=== PATIENT | female | born 1980 | race Caucasian/White ===

== ENCOUNTER → 2020-11-29 09:48 | Outpatient (BNVA) | payer OTHER, SELFPAY | PROVIDERS: PCP Physician Assistant Medical; Visit Provider Internal Medicine Cardiovascular Disease | DX: R06.02 Shortness of breath (principal); I49.3 Ventricular premature depolarization; I10 Essential (primary) hypertension | CPT/HCPCS: 93005 ==

== ENCOUNTER → 2021-01-14 09:32 | Outpatient (REF) | payer OTHER, SELFPAY ==
--- NOTE | 2021-01-14 09:39 | CA_ITS ---
Transthoracic Echocardiogram Patient (Last, First, Middle): Lindy Simental, Gender: Female Date of : 1980 Age: 40 Procedure Date: 01/14/2021 Procedure Type: Transthoracic Echocardiogram Location: OP Height: 165.1 cm Weight: 142.88 kg BSA: 2.40 m2 Heart Rate: bpm BP: 120 / 70 mmHg Photo Manager: CHRISTAL Referring MD: Bryant Hawkins MD Steam Shovel Runner: Bryant Hawkins MD Symptoms: R06.02 - Shortness of breath Study Quality: Fair ECG Rhythm: Sinus Conclusions: - Essentially normal study Findings Left Ventricle Normal left ventricular size, thickness, and systolic function. The visually estimated ejection fraction is between 60-65%. Diastolic function is normal for age. Right Ventricle Normal right ventricular cavity size and systolic function. Atria Both atria are normal in size. There is no evidence of interatrial shunt. Aortic Valve Normal aortic valve structure and function. There is no aortic valve stenosis. There is no aortic valve regurgitation. Mitral Valve Normal mitral valve structure and function. There is trace mitral valve regurgitation. There is no mitral valve stenosis. Pulmonic Valve The pulmonic valve is likely normal. Tricuspid Valve Normal tricuspid valve structure. There is trace tricuspid valve regurgitation. The right ventricular systolic pressure is normal. The right ventricular systolic pressure is 28 mmHg. Normal right atrial pressure. There is no evidence of pulmonary hypertension. Great Vessels All visible segments of the aorta are normal in size. The pulmonary artery was not well visualized. Venous The inferior vena cava is normal in size and collapses greater than 50% with inspiration. Pericardium/Pleural There is no evidence of pericardial effusion. Prior Study Comparison No prior study available for comparison. Measurements 2D Linear Measurements IVSd: 1.00 0.6-0.9/0.6-1.0 cm LVIDd: 4.48 3.9-5.3/4.2-5.9 cm LVIDd Index: 1.87 2.4-3.2/2.2-3.1 cm/m2 LVIDs: 2.82 2.0-3.6 cm LVPWd: 0.97 0.7-1.1 cm Ao Root: 2.50 2.1-3.5 cm LA Diam: 3.80 2.7-3.8/3.0-4.0 cm LAIDs Index: 1.58 1.5-2.3 cm/m2 LV Mass: 184.91 67-162/88-224 g LV Mass Index: 77.05 43-95/49-115 g/m2 LVOT Diam: 2.00 3.0+(-)1.3 cm 2D Systolic Function EF 4C: 78.30 >55% EF 2C: 46.40 >55% EF BiP: 66.90 >55% Mitral Valve MV Pk E: 0.94 MV PK A: 0.58 MV Decel Time: 140.00 E/A: 1.60 E'Lateral: 17.00 E'Medial: 8.81 E/E' Med: 10.60 E/E' Lat: 5.50 PHT: 41.00 MVA PHT: 5.37 Decel [place]: 6.69 Aortic Valve AoV Pk Sj: 1.43 AoV Pk Grad: 8.00 LVOT LVOT Pk Sj: 1.25 LVOT Mn Sj: 0.80 LVOT VTI: 0.27 LVOT Pk Grad: 6.00 LVOT Mn Grad: 3.00 LVOT Diam: 2.00 LVOT Area: 3.14 Diastolic Function MV Pk E: 0.94 MV Pk A: 0.58 E/A: 1.60 E'Medial: 8.81 E/E' Med: 10.60 E' Laterial: 17.00 E/E' Lat: 5.50 Tricuspid Valve TR Pk Sj: 2.50 TR Pk Grad: 25.00 RVSP: 28.00 Great Vessels Aorta Ao Root-2D: 2.50 2.0-3.7 cm Ao Asc: 2.80 2.1-3.4 cm Updated in Other Vendor System with Status of Final Bryant Hawkins MD electronically signed on 01/14/2021 1:25:02 PM with status of Final
== END ==
LOC: HO.CARD 09:32
PROVIDERS: Visit Provider Internal Medicine Cardiovascular Disease
DX: I49.3 Ventricular premature depolarization (principal); R06.02 Shortness of breath
CPT/HCPCS: 93306; Q9957

== ENCOUNTER → 2021-11-05 13:00 | Outpatient (BNVA) | payer OTHER, SELFPAY | PROVIDERS: PCP Physician Assistant Medical; Visit Provider Internal Medicine Cardiovascular Disease | DX: R00.2 Palpitations (principal); I10 Essential (primary) hypertension | CPT/HCPCS: 93005 ==

== ENCOUNTER → 2021-11-21 11:13 | Outpatient (REF) | payer OTHER, SELFPAY ==
--- NOTE | 2021-11-21 11:22 | HM_ITS ---
Conclusion: 1. Patient was monitored for total period of 3 days and 14 hours 2. Baseline was normal sinus rhythm with average heart rate of 81 beats per minute 3. Total of 25 PACs noted accounting for less than 0.01%, accounting for very rare PACs 4. No significant pauses or bradycardia noted 5. No patient reported symptoms MTDD
== END ==
LOC: HO.CARD 11:13
PROVIDERS: PCP Family Medicine; Visit Provider Internal Medicine Cardiovascular Disease
DX: R00.2 Palpitations (principal); I49.3 Ventricular premature depolarization
CPT/HCPCS: 93242

== ENCOUNTER → 2022-11-06 11:08 | Outpatient (BNVA) | payer OTHER, SELFPAY | PROVIDERS: PCP Family Medicine; Referring Provider Family Medicine; Visit Provider Internal Medicine Cardiovascular Disease | DX: I49.3 Ventricular premature depolarization (principal); I10 Essential (primary) hypertension | CPT/HCPCS: 93005 ==

== ENCOUNTER → 2023-02-18 10:36 | Outpatient (BNVA) | payer OTHER, SELFPAY | PROVIDERS: PCP Family Medicine; Visit Provider Dietitian, Registered | DX: E66.9 Obesity, unspecified (principal); Z68.43 Body mass index [BMI] 50.0-59.9, adult | CPT/HCPCS: 97802 ==

== ENCOUNTER 2023-11-16 10:40 | Outpatient (AMB) | payer OTHER, SELFPAY ==
[2023-11-16 10:46] VITALS: BP 118/72; PULSE 81; BMI 53.0
--- NOTE | 2023-11-16 10:46 | MHC.OFFVIS ---
Intake Vital Signs 11/16/23 10:46 Height 5 ft 6 in Weight 328 lb 7.82 oz BMI 53.0 BP 118/72 Blood Pressure Location Lt brachial Position Sitting Pulse 81 Intake Visit Reasons: 1 YEAR FUP Intake Note: 1 year follow-up with ekg c/o flutters at times Shop Mechanic Helper Required: No Allergies acetaminophen [Percocet] Allergy (Unknown, Verified 01/23/20 00:00) omeprazole Allergy (Unknown, Verified 01/23/20 00:00) oxycodone [Percocet] Allergy (Unknown, Verified 01/23/20 00:00) penicillin V Allergy (Unknown, Verified 01/23/20 00:00) Sulfa (Sulfonamide Antibiotics) Allergy (Unknown, Verified 01/23/20 00:00) Cecon Allergy (Unknown, Uncoded 01/23/20 00:00) Doxycycline (Rosacea) Allergy (Unknown, Uncoded 01/23/20 00:00) Vicodin Allergy (Unknown, Uncoded 01/23/20 00:00) Medication List - Last Reconciled 11/16/23 by Bryant Hawkins MD famotidine 40 mg PO BID levalbuterol tartrate 45 mcg/actuation inhalation levothyroxine 150 mcg PO DAILY norethindrone (contraceptive) (Incassia) 0.35 mg PO DAILY propranolol ER 60 mg PO DAILY HPI HPI Comments History of Present Illness Details Lindy comes for follow-up. She has been doing very well from cardiac perspective. She occasionally still has fluttering in her chest but not significant. Blood pressure is generally well controlled. She has not been able to exercise much or lose weight. However she denies any other cardiac symptoms of exertional chest pain or shortness of breath. Denies any orthopnea, PND, leg edema. No prolonged irregular heartbeat or palpitations. No lightheadedness, syncope. FORMERLY [facility] Medical History SOB (shortness of breath) on exertion Obstructive sleep apnea Obesity HTN (hypertension) PVCs (premature ventricular contractions) Surgical History Hx of lithotripsy Hx of thyroidectomy Family History Father No problems noted. Mother Afib Review of Systems Const Denies chills, Denies fatigue, Denies fever(s), Denies frequent falls, Denies weakness, Denies weight gain and Denies weight loss ENT Denies dizziness Card Denies chest pain, Denies leg edema, Denies lightheadedness, Denies palpitations, Denies dyspnea, Denies dyspnea on exertion, Denies orthopnea and Denies other (loss of consciousness) Resp Denies cough, Denies dyspnea and Denies dyspnea on exertion GI Denies hematochezia and Denies change in stool character Musc Denies abnormal gait, Denies muscle weakness, Denies numbness, Denies radiating pain into limb and Denies tingling Neuro Denies abnormal gait, Denies dizziness, Denies frequent falls, Denies numbness, Denies tingling and Denies weakness Endo Denies fatigue and Denies palpitations Physical Exam Vital Signs: Last Vital Signs Pulse 81 11/16/23 10:46 BP 118/72 11/16/23 10:46 BMI result Body Mass Index 53.0 Const General: cooperative, comfortable, no acute distress, alert and awake Nutritional Appearance: obese morbidly obese Orientation/consciousness: patient oriented x3 Limitations: no limitations Neck Neck: Yes trachea midline, Yes supple and Yes no JVD Chest Chest palpation & inspection: normal inspection of the chest Resp Effort & Inspection: normal respiratory effort Auscultation: clear to auscultation bilaterally Cardio Jugular venous distension: no JVD Rate: regular rate Rhythm: regular rhythm Heart sounds: S1 normal heart sound present and S2 normal heart sound present GI Auscultation: normal bowel sounds Skin General skin exam: no rashes or lesions noted Neuro General: patient oriented x3 and no focal motor deficits Extrem General: Yes no clubbing, cyanosis or edema Psych Appearance: grossly normal Office Procedures EKG Details: EKG shows normal sinus rhythm with normal EKG [id number], Complete Assessment & Plan Assessment & Plan (1) HTN (hypertension): Code(s): I10 - Essential (primary) hypertension Plan: Hypertension which is currently well optimized advised to monitor blood pressure at home and maintain a log. Target goal blood pressure overall less than 130/84. Importance of good blood pressure control was discussed. Advised to participate in stress mitigation strategies. Continue current propranolol therapy which has worked well for her. Unless this interferes with a pulmonary function will continue the same. Low-salt diet was discussed. Continue participate in regular physical activity and weight loss program. Continue treat sleep apnea. (2) PVCs (premature ventricular contractions): Code(s): I49.3 - Ventricular premature depolarization Plan: Highly symptomatic PVCs which has remained suppressed on propranolol therapy has done very well. Occasional palpitations. We discussed about avoidance of stimulants which she does not. Stress mitigation strategies to be pursued. Will follow up in the clinic in 1 year's time, sooner p.r.n.. Thank you for allowing me to partake in the care Coding Level of Care Code Est Pt Level 4 (40318) Diagnoses HTN (hypertension) I10 PVCs (premature ventricular contractions) I49.3 CPT Codes EKG - CPT: 51949-[id number], Complete ([id number])
== END 2023-11-16 11:04 | disposition home or self-care (01) ==
PROVIDERS: PCP Family Medicine; Visit Provider Internal Medicine Cardiovascular Disease
DX: I10 Essential (primary) hypertension (principal); I49.3 Ventricular premature depolarization
CPT/HCPCS: 93010; 99214

== ENCOUNTER → 2023-11-16 10:40 | Outpatient (BNVA) | payer OTHER, SELFPAY | PROVIDERS: Visit Provider Internal Medicine Cardiovascular Disease | DX: I10 Essential (primary) hypertension (principal); I49.3 Ventricular premature depolarization; Z79.899 Other long term (current) drug therapy | CPT/HCPCS: 93005 ==

== ENCOUNTER 2024-11-15 10:33 | Outpatient (AMB) | payer OTHER, SELFPAY ==
--- NOTE | 2024-11-15 10:49 | A.OFFVIS_ITS ---
Vital Signs 11/15/24 10:50 Height 5 ft 6 in Weight 326 lb BMI 52.6 BP 128/80 Blood Pressure Location Lt brachial Position Sitting Pulse 77 Pulse Source Monitor Intake Visit Reasons: 1 yr f/up Allergies acetaminophen [Percocet] Allergy (Unknown, Verified 01/23/20 00:00) omeprazole Allergy (Unknown, Verified 01/23/20 00:00) oxycodone [Percocet] Allergy (Unknown, Verified 01/23/20 00:00) penicillin V Allergy (Unknown, Verified 01/23/20 00:00) Sulfa (Sulfonamide Antibiotics) Allergy (Unknown, Verified 01/23/20 00:00) Cecon Allergy (Unknown, Uncoded 01/23/20 00:00) Doxycycline (Rosacea) Allergy (Unknown, Uncoded 01/23/20 00:00) Vicodin Allergy (Unknown, Uncoded 01/23/20 00:00) Medication List - Last Reconciled 11/15/24 by Bryant Hawkins MD famotidine 40 mg PO BID levalbuterol tartrate 45 mcg/actuation inhalation levothyroxine 150 mcg PO DAILY norethindrone (contraceptive) (Incassia) 0.35 mg PO DAILY propranolol ER 60 mg PO DAILY HPI Comments Details: Lindy comes for follow-up. She remains with minimal symptoms. She continues to have intermittent symptoms of palpitation consistent with PVC but these are not life bothering or life-limiting. This point time she also says she feels flushed in her chest and upper throat area and is wondering whether this is blood pressure related. However blood pressure today is well optimized. She says occasionally blood pressure readings elevated. She does not regularly monitor blood pressure at home. Denies any exertional chest pain, shortness of breath. No orthopnea, PND, leg edema. Denies any lightheadedness, syncope. FORMERLY [facility], [facility] Medical History SOB (shortness of breath) on exertion Obstructive sleep apnea Obesity HTN (hypertension) PVCs (premature ventricular contractions) Surgical History Hx of lithotripsy Hx of thyroidectomy Family History Father No problems noted. Mother Afib Review of Systems Const Denies weakness ENT Denies dizziness Card Reports chest pain, Denies chest pain with activity, Denies syncope, Denies rapid heart rate, Denies pedal edema, Denies edema, Denies leg edema, Denies lightheadedness, Reports palpitations, Reports dyspnea, Denies dyspnea on exertion and Denies orthopnea Resp Denies cough, Reports dyspnea and Denies dyspnea on exertion GI Denies hematochezia and Denies change in stool character Musc Denies abnormal gait, Denies muscle cramps, Denies muscle weakness, Denies numbness, Denies radiating pain into limb and Denies tingling Neuro Denies abnormal gait, Denies dizziness, Denies syncope, Denies numbness, Denies tingling and Denies weakness Endo Reports palpitations Physical Exam Vital Signs: Last Vital Signs Pulse 77 11/15/24 10:50 BP 128/80 11/15/24 10:50 BMI result Body Mass Index 52.6 Const General: cooperative, comfortable, no acute distress, alert and awake Nutritional Appearance: obese morbidly obese Orientation/consciousness: patient oriented x3 Limitations: no limitations Neck Neck: Yes trachea midline, Yes supple and Yes no JVD Chest Chest palpation & inspection: normal inspection of the chest Resp Effort & Inspection: normal respiratory effort Auscultation: clear to auscultation bilaterally Cardio Jugular venous distension: no JVD Rate: regular rate Rhythm: regular rhythm Heart sounds: S1 normal heart sound present and S2 normal heart sound present GI Auscultation: normal bowel sounds Skin General skin exam: no rashes or lesions noted Neuro General: patient oriented x3 and no focal motor deficits Extrem General: Yes no clubbing, cyanosis or edema Psych Appearance: grossly normal Office Procedures EKG Details: EKG shows normal sinus rhythm with normal EKG at 77 beats per minute [id number], Complete Assessment & Plan Assessment & Plan (1) PVCs (premature ventricular contractions): Code(s): I49.3 - Ventricular premature depolarization Category: Medical Plan: Persistent symptoms with PVCs but these are not life-limiting or life altering at this point time. She has done very well with current therapy with propranolol. Continue the same. Avoidance of stimulants was discussed. Stress mitigation strategies were discussed advised no further workup or change in therapy at this point in time. (2) HTN (hypertension): Code(s): I10 - Essential (primary) hypertension Category: Medical Plan: Hypertension which seemed to be well optimized on current propranolol therapy on today's exam. Although she notices intermittently having symptoms of facial flushing in his which appears to be flush today as well although blood pressure is normal. Advised to monitor blood pressure more regularly at home and intensity for the next 2 months. Advised to invest in a blood pressure cuff. She understands agrees. Further treatment based on the findings of blood pressure readings at home. No change in therapy for now. Low-salt diet was discussed. Stress mitigation strategies was discussed. Aggressive participate in weight loss program was discussed. Consider treatment with GLP 1 antagonist. Will follow up in the clinic in 1 year's time, sooner p.r.n.. Thank you for allowing me to partake in his care Coding Level of Care Code Est Pt Level 4 (17418) Complex EM visit Add On G2211 Diagnoses PVCs (premature ventricular contractions) I49.3 HTN (hypertension) I10 CPT Codes EKG - CPT: 91420-[id number], Complete ([id number])
[2024-11-15 10:50] VITALS: BP 128/80; PULSE 77; BMI 52.6
--- OUTSIDE RECORDS SUMMARY | 2024-11-15 12:35 | XMS_ITS | Continuity of Care Document ---
[facility] Organization [facility] Address [address] [place] [address]- [facility] Name Relationship Address Phone SUZY VASQUES Personal Relationship Unknown Unavai lable MCCURDY, GILSON Personal Relationship Unknown Unavai lable MCCURDY, GILSON Personal Relationship Unknown Unavai lable CAPRICE, NICHELLE Personal Relationship Unknown Unavai lable CAPRICE, SUZY Personal Relationship Unknown Unavai lable CAPRICE, SUZY Personal Relationship Unknown Unavai lable CAPRICE, AGGARWAL Personal Relationship Unknown Unavai lable LG, ALANNA mother Unknown Unavailable CAPRICE, SUZY Personal Relationship Unknown Unavai lable CAPRICE, SUZY Personal Relationship Unknown Unavai lable CAPRICE, SUZY Personal Relationship Unknown Unavai lable CAPRICE, NICHELLE Personal Relationship Unknown Unavai lable CAPRICE, SUZY spouse Unknown Unavailable CAPRICE, PANFILO Personal Relationship Unknown Unavai lable CAPRICE, PANFILO Personal Relationship Unknown Unavai lable CAPRICE, SUZY Other Unknown Unavailable CAPRICE, SUZY D Personal Relationship Unknown Unav ailable CAPRICE, SUZY Personal Relationship Unknown Unavai lable CAPRICE, SUZY Personal Relationship Unknown Unavai lable LG, ALANNA mother Unknown Unavailable CAPRICE, GILSON Personal Relationship Unknown Unavai lable CAPRICE, SUZY Personal Relationship Unknown Unavai lable Care Team Providers Care Ager Operator Name Role Phone Dora No MD Primary Care Physician Encounter [facility] NBR [id number] Date(s): 10/21/24 - 10/28/24 [facility] [address] [place] [address]- Attending Physician: Dora No MD Encounter Type: Office Visit Allergies, Adverse Reactions, Alerts Substance Criticality Severity Reaction Reaction Severity Status doxycycline vomiting Active omeprazole hives Active cephalosporins hives Activ e Ultram unknown Active Vicodin nausea,general malaise Active Percocet 5/325 nausea Activ e Butrans 1 hives Active penicillin Hives Active sulfADIAZINE Hives Active Decadron unknown Active Ceclor Hives Active 1nausea Immunizations Given and Recorded Vaccine Date Status Refusal Reason influenza virus vaccine, inactivated 07/01/24 Peter rded influenza virus vaccine, inactivated 05/29/23 Peter rded influenza virus vaccine, inactivated 06/03/22 Peter rded influenza virus vaccine, inactivated 07/17/21 Peter rded influenza virus vaccine, inactivated 07/05/20 Give n influenza virus vaccine, inactivated 07/06/19 Peter rded influenza virus vaccine, inactivated 07/12/18 Peter rded influenza virus vaccine, inactivated 06/02/17 Peter rded influenza virus vaccine, inactivated 06/23/16 Peter rded influenza virus vaccine, inactivated 08/18/11 Peter rded SARS-CoV-2 (COVID-19) mRNA-1273 vaccine 09/17/21 R ecorded SARS-CoV-2 (COVID-19) mRNA-1273 vaccine 10/17/20 R ecorded SARS-CoV-2 (COVID-19) mRNA-1273 vaccine 09/19/20 R ecorded tetanus/diphtheria/pertussis, acel(Tdap) 06/05/17 Recorded Fluvirin (oldterm) 06/03/17 Recorded Medications Dulera 200 mcg-5 mcg/inh inhalation aerosol 2 puffs, Inhalation, 2 times a day, # 13 Gm, 3 Refills, Maintenance, 12/29/23 4:44:00 PM EDT, Aerosol, [id number], Partial fill upon patient request if the prescription is for a schedule II opioid drug., 2 puffs Inhalation 2 times a day, 165, cm, 12/28/23 9:39:00 EDT, Height, 148.5, kg, 05/01/23 9:46:00 EDT, Dry Weight Start Date: 12/29/23 Status: Ordered Quantity: 13.0 Unit: g Repeat number: 4 Indication: Unspecified asthma, uncomplicated famotidine 40 mg oral tablet 1 tablet = 40 mg, By Mouth, 2 times a day, # 60 tablet, 5 Refills, Maintenance, 08/16/24 2:20:00 PMEST, Tablet, [id number], Partial fill upon patient request if the prescription is for a schedule II opioid drug., 165, cm, 02/17/24 14:15:00 EDT, Height, 148.5, kg, 05/01/23 9:46:00 EDT, Dry Weight Start Date: 08/16/24 Stop Date: 02/12/25 Status: Ordered Quantity: 60.0 Unit: tablet Repeat number: 6 levothyroxine 0.15 mg oral tablet 0 Refills, Maintenance, 12/28/23 9:44:00 AM EDT, Partial fill upon patient request if the prescription is for a schedule II opioid drug. Start Date: 12/28/23 Status: Ordered Repeat number: 1 oral cntrol pills oral cntrol pills, Refills 0, Maintenance, 12/28/23 9:43:00 AM EDT, Supply Start Date: 12/28/23 Status: Ordered Repeat number: 1 propranolol 60 mg oral tablet 1 tablet = 60 mg, By Mouth, Daily at bedtime, 0 Refills, Maintenance, 10/15/20 10:51:00 AM EST, Partial fill upon patient request if the prescription is for a schedule II opioid drug. Start Date: 10/15/20 Status: Ordered Repeat number: 1 sucralfate 1 gm oral tablet 1 Gm, 1, tablet, By Mouth, 3 times a day before meals and bedtime, # 120 tablet, Refills 5, Tot. Refills 5, Maintenance, 12/28/23 11:10:00 AM EDT, Route to Pharmacy Electronically, [facility][id number], Partial fill upon patient request if the prescription is for a schedule II opioid drug., 165, cm, 12/28/23 9:39:00 EDT, Height, 148.5, kg, 05/01/23 9:46:00 EDT, Dry Weight Start Date: 12/28/23 Stop Date: 06/25/24 Status: Ordered Quantity: 120.0 Unit: tablet Repeat number: 6 Problem List Condition Confirmation Course Effective Dates Status H ealth Status Informant Anxiety Confirmed Active Asthma Confirmed Active Lumbar disc disease Confirmed Active Acid reflux Confirmed Active H/O heartburn Confirmed Active Hemorrhoids Confirmed Active Hernia, ventral Confirmed Active Hx of papillary thyroid carcinoma Confirmed Active Hypothyroidism Confirmed Active Morbid obesity Confirmed Active Obstructive sleep apnea Confirmed Active Panic disorder Confirmed Active Severe obesity Confirmed Active PVC (premature ventricular contraction) Confirmed Active Vital Signs Most recent to oldest [Reference Range]: 1 Height 165 cm (10/21/24 2:19 PM) Weight 147.6 kg (10/21/24 2:19 PM) Oxygen Saturation [94-100 %] 97 % (10/21/24 2:19 PM) Pulse Rate [55-90 bpm] 81 bpm (10/21/24 2:19 PM) Body Mass Index [18.5-24.99 kg/m2] 54.21 kg/m2 *>HHI* (10/21/24 2:19 PM) Blood Pressure [90-138/55-84 mm Hg] 146/ 88mm Hg *H* (10/21/24 2:19 PM) Temperature [96.8-100.4 DegF] 96.5 DegF *L* (10/21/24 2:19 PM) Mode of Delivery (Oxygen) Room air (10/21/24 2:19 PM) Blood pressure sites Arm, left (10/21/24 2:19 PM) Temperature Route Temporal (10/21/24 2:19 PM) Weight Obtained Via Standing scale (10/21/24 2:19 PM) Social History Social History Type Response Smoking Status Never smoker entered on: 06/07/15 Sex Sex Representation Female (finding) Note * Jacqui Quevedo: PERFORM Event Display: Patient Education/Instruction Authored Date: [id number] Ambulatory Adult Visit Summary [facility] [address] [address] Name: NICHELLE CAPRICE : 1980?? Visit: 10/21/2024 14:15?? Ambulatory Visit Instructions ?? Your Care Team Primary Care Provider Dora No MD? This Visit Provider Dora No MD Your Diagnosis Lumbar back pain with radiculopathy affecting lower extremity Vitals Signs Temperature:??96.5 DegF??Low Height: 165 cm Pulse Rate: 81 bpm Weight: 147.6 kg Systolic Blood Pressure:??146 mm Hg??High Body Mass Index:??54.21 kg/m2??Critical Diastolic Blood Pressure:??88 mm Hg??High Body surface area: 2.6 Oxygen Saturation: 97 % ?? What to do next Future Orders MRI Lumbar Spine W/O Contrast, Routine, Reason for Exam: Postop Disc Excision, new lumbar pain , h/o discectomy, No-No Pacemaker or Neurostimulator, Can Patient Stand Alone?, Once, *Est. 10/21/24 Comprehensive Metabolic Panel - Routine, Once, 02/17/24 14:36:00 EDT, Future Order, [facility], Blood?? Lipid Panel - Routine, Once, 02/17/24 14:36:00 EDT, Future Order, [facility], Blood?? Medications The list below reflects the information in our records and provided by you today along with any changes made during this visit. Please continue your medications until treatment is completed or stopped by your provider. If this is different from the information you have or there are other questions,please contact the prescribing provider. What How Much When Why Instructions Unchanged Famotidine (famotidine 40 mg oral tablet) 1 tab(s) Oral Twice a day Duration: 30 Days Unchanged formoterol-mometasone (Dulera 200 mcg-5 mcg/ inh inhalation aerosol) 2 puff(s) Inhalation Twice a day Asthma Unchanged Levothyroxine (levothyroxine 0.15 mg oral tablet) Unchanged Miscellaneous Rx (oral cntrol pills) Unchanged Propranolol (propranolol 60 mg oral tablet) 1 tab(s) Oral Daily at Bedtime Unchanged Sucralfate (sucralfate 1 gm oral tablet) 1 tab(s) Oral 3 times a day before meals and bedtime Duration: 30 Days Medications and Immunizations Administered Medications Given During Visit No medications given during this visit.?? Allergies (NKA means No Known Allergies) Butrans??(hives) Ceclor??(Hives) Decadron??(unknown) Percocet 5/325??(nausea) Ultram??(unknown) Vicodin??(nausea,general malaise) cephalosporins??(hives) doxycycline??(vomiting) omeprazole??(hives) penicillin??(Hives) sulfADIAZINE??(Hives) Common Emergency Awareness Tips IS IT A STROKE? Act FAST and Check for these signs: FACE Does the face look uneven? ARM Does one arm drift down? SPEECH Does their speech sound strange? TIME Call at any sign of stroke ?? Heart Attack Signs Chest discomfort: Most heart attacks involve discomfort in the center of the chest and lasts more than a few minutes, or goes away and comes back. It can feel like uncomfortable pressure, squeezing, fullness or pain. Discomfort in upper body: Symptoms can include pain or discomfort in one or both arms, back, neck, jaw or stomach. Shortness of breath: With or without discomfort. Other signs: Breaking out in a cold sweat, nausea, or lightheaded. Remember, MINUTES DO MATTER. If you experience any of these heart attack warning signs, call to get immediate medical attention! ?? Smoking can increase your chances of developing chronic health problems and can cause harmful effects to other family members in your house. If you smoke, you are strongly encouraged to quit. Please call [employer] at [phone] or [phone] ([phone]) or log in to [email or web address] for referrals to smoking cessation programs. ?? The National Suicide Prevention Hotline is available 13/04 if you or someone you know needs to find a reason to keep living. By calling 4-292-429-[employer] (2948) you'll be connected to a skilled, trained counselor at a crisis center in your area. [facility] [employer] Portal You can view and manage your care through the patient portal or by using a health care ángela of your choosing. [employer] is a website that allows you to securely view your medical information including your hospital discharge summary, office visit summaries, medications and follow-up visits. You can also request appointments, renew medications, and request access to your medical information using a health care ángela of your choosing, or just ask a question. You can enroll at [email or web address] or register during your next office visit. [facility], in keeping with [facility] guidance, no longer requires face masks for staff, patientsor visitors in most situations. Similiar to time spent indoors at other locations, there is the chance that you were exposed to repiratory viruses during your time with us (such as flu or COVID-19). If you develop symptoms concerning for a viral respiratory infection, please seek testing (and treatment if indicated) from your medical provider or home test kit. ?? Disclaimer: The information provided is of a general nature and is intended to be used in conjunction with the recommendations and advice of your health care practitioner. Every effort has been made to ensure that the information provided is accurate and complete at the time it is provided to you however, as your needs change, or, as new information becomes available, different or additional instructions may be required. ?? If you have questions, please consult with your primary care provider or pharmacist, as appropriate. This information is not intended to serve as substitution for assessment and evaluation by a qualified health care provider. If you do not have a primary care provider, you may find a [facility] provider by calling [facility] [employer] [facility] at [phone]. Patient Care team information Care Team Personnel Name: Dora No MD Position: [facility] Physician - Primary Care Member Role: PCP Address: [address] [place] [address] Telecom: Name: Danial LEE, Alton Obrien Position: [facility] OBEDIENCE TRAINER MD Member Role: Lifetime OBEDIENCE TRAINER Physician Name: Naif Rios RN Position: [facility] RN Member Role: Primary Care Nurse Care Team Related Persons Name: ALANNA CASTANON Name: ALANNA CASTANON Name: SUZY VASQUES Name: SUZY VASQUES Insurance Providers Guarantor name: NICHELLE CAPRICE Health Plan Information #: 1 Payer: [employer] Member Number: [id number] Policy Number: NA Group Number: [id number] Health Plan Information #: 2 Payer: [employer] Member Number: [id number] Policy Number: NA Group Number: [id number]
--- OUTSIDE RECORDS SUMMARY | 2024-11-15 12:35 | XMS_ITS | Clinical Summary ---
Author Organization [facility] Address [phone] [facility] [place] [address] Care Team Providers Care Zyglo Inspector Name Role Phone Dora No MD Primary Care Provider Allergies Active Allergy Reactions Criticality Noted Date Comments Buprenorphine 08/16/2024 Other Reaction(s): hives, Not available nausea Cephalosporins 08/16/2024 Other Reaction(s): Hives, Not available Dexamethasone 08/16/2024 Other Reaction(s): Not available, unknown Doxycycline Rash 07/23/2015 Other Reaction(s): vomiting Omeprazole 08/16/2024 Other Reaction(s): Hives, Not available Penicillins 08/16/2024 Other Reaction(s): Hives, Not available Percocet (Oxycodone-Acetaminophen) 08/16/2024 Other Reaction(s): nausea, Not available Ranitidine Hcl 08/16/2024 Other Reaction(s): Not available Sulfa (Sulfonamide Antibiotics) Rash 07/23/2015 Other Reaction(s): Hives, Not available Tramadol 08/16/2024 Other Reaction(s): Not available, unknown Vicodin (Hydrocodone-Acetaminophen) 08/16/2024 Other Reaction(s): nausea,general malaise, Not available Medications Medication Sig Dispensed Refills Start Date End Date Status SOOLANTRA 1 % 08/11/2024 Active levalbuterol (XOPENEX HFA) 45 mcg/actuation inhaler Active levothyroxine (SYNTHROID, LEVOTHROID) 150 MCG tablet Take 150 mcg by mouth. Active propranoloL (INDERAL LA) 60 mg 24 hr capsule Take 60 mg by mouth daily. Active sucralfate (CARAFATE) 100 mg/mL suspension TAKE 10 ML (2 TEASPOONS) BY MOUTH 3 TIMES A DAY BEFORE MEALS & AT BEDTIME Active famotidine (PEPCID) 40 MG tablet Take 1 tablet by mouth 2 (two) times a day. Active clonazePAM (KLONOPIN) 0.5 MG tablet Take 0.5 mg by mouth 2 (two) times a day as needed. Active INCASSIA 0.35 mg tablet Take 1 tablet (0.35 mg total) by mouth daily. 84 tablet 4 08/16/2024 Active Active Problems Problem Noted Date Diagnosed Date BMI 50.0-59.9, adult 08/16/2024 Assessment & Plan (08/16/2024 3:57 PM EST): Referral to [facility] weight management reviewed and placed Lumbar radiculopathy 07/23/2015 Overview (08/28/2015): Lumbar radiculopathy Encounters Date Type Department Care Team Description 09/28/2024 Telephone [facility] [address] [place] [address] [place] [address] Sandra Marquez, YADIRA Pap Results 08/16/2024 9:50 AM EST Office Visit [facility] [address] [place] [address] [place] [address] Joann Medina MD Encounter for gynecological examination without abnormal finding (Primary Dx); BMI 50.0-59.9, adult from Last 3 Months Social History Tobacco Use Types Packs/Day Years Used Date Smoking Tobacco: Never Passive Smoke Exposure: Never Smokeless Tobacco: Never Tobacco Cessation:Counseling Given: Not Answered Alcohol Use Standard Drinks/Week Comments Never 0 (1 standard drink = 0.6 oz pur e alcohol) Education Answer Date Recorded Are you interested in more education? Not on katja e 11/27/2023 Are you concerned about learning? Not on file 11/27/2023 No 11/27/2023 No 11/27/2023 Digital Access Answer Date Recorded No 11/27/2023 No 11/27/2023 Reliable internet access at home? Not on file 11/27/2023 Device with a working camera? Not on file Sex and Gender Information Value Date Recorded Sex Assigned at Female 12/22/2023 9:11 AM EDT Gender Identity Female 12/22/2023 9:11 AM EDT Sexual Orientation Straight 12/22/2023 9: 11 AM EDT Last Filed Vital Signs Vital Sign Reading Time Taken Comments Blood Pressure 124/80 08/16/2024 9:44 AM EST Pulse 79 02/22/2024 11:33 AM EDT Temperature 36.4 ??C (97.6 ??F) 02/22/2024 11:33 AM E DT Respiratory Rate 18 02/22/2024 11:33 AM EDT Oxygen Saturation 100% 02/22/2024 11:33 AM EDT Inhaled Oxygen Concentration - - Weight 146.5 kg (323 lb) 08/16/2024 9:44 AM EST Height 165.1 cm (5' 5 ) 08/16/2024 9:44 AM EST Body Mass Index 53.75 08/16/2024 9:44 AM EST Plan of Treatment Health Maintenance Due Date Last Done Comments TSH LEVEL 1980 DEPRESSION SCREENING 1994 HEPATITIS B SCREENING 01/25/2000 HEPATITIS C SCREENING 01/25/2000 HIV ONE-TIME SCREENING (18-65 YEARS) 01/25/2000 HEPATITIS B VACCINES (1 of 3 - 19+ 3-dose series) 2001 SCREENING FOR DIABETES 2017 MAMMOGRAM 2022 COVID-19 VACCINE ( season) 2024 09/17/2021, 10/17/2020, 09/19/2020 Adult Td,Tdap Booster 06/05/2027 06/05/2017 PAP SMEAR 08/16/2027 08/16/2024, 05/19/2023 INFLUENZA VACCINE Completed 07/01/2024, , 06/03/2022, Additional history exists SMOKING STATUS SCREENING (Once After 26 Yrs) Completed 08/16/2024 HEPATITIS A VACCINES Aged Out No long er eligible based on patient's age to complete this topic HIB VACCINES Aged Out No longer eligi ble based on patient's age to complete this topic MENINGOCOCCAL VACCINES (ACWY) Aged Out No longer eligible based on patient's age to complete this topic PNEUMOCOCCAL VACCINES (0-49 years) Aged Out No longer eligible based on patient's age to complete this topic Medical Devices Not on file Procedures Procedure Name Priority Date/Time Associated Diagnosis Comments PAP TEST Routine 08/16/2024 12:00 AM EST from Last 3 Months Results * Pap Test (08/16/2024 12:00 AM EST) 08/16/2024 08/17/2024 8:4 6 AM EST Narrative SEE NARRATIVE - 08/23/2024 12:37 [place] [address] Branch Store Manager: Jesse Alvarado MD ?? SPECIAL EDUCATION CURRICULUM SPECIALIST Cytology Report FINAL DIAGNOSIS A. ??PAP SMEAR (THIN PREP) CE: SPECIMEN ADEQUACY: Satisfactory for evaluation; transformation zone present. INTERPRETATION: NEGATIVE FOR INTRAEPITHELIAL LESION OR MALIGNANCY. Reactive changes. This specimen was analyzed by the automated ThinPrep Imaging System ([employer] and manually rescreened by a chief supply chain officer and/or pathologist. Electronically Signed Out By: ??MD Stephenie Bui CT(ASCP) CHERYL Gould(ASCP) By his/her signature above, the pathologist listed as making the Final Diagnosis certifies that he/she has personally reviewed this case and confirmed or corrected the diagnosis. The Pap test is a screening test primarily for squamous cancers and precursors and has associated false-negative and false-positive results. ??New technologies such as liquid-based preparations may decrease but will not eliminate all false-negative results. ??Regular sampling and follow-up of unexplained clinical signs and symptoms are recommended to minimize false negative results. PROCEDURES/ADDENDA HPV Testing (Requested) Ordered Date: 08/17/2024 ? A. PAP SMEAR (THIN PREP) CE: ?? High-risk HPV Panel w/ extended genotyping ?NEG HPV 16-NEG HPV 18-NEG HPV 45-NEG HPV 33/58-NEG HPV 31-NEG ? HPV 56/59/66-NEG HPV 51-NEG HPV 52-NEG HPV 35/39/68-NEG Performed by real-time polymerase chain reaction (PCR) at [facility], [address] [place] [address] using the FDA-approved BD Onclarity9 HPV Assay with extended genotyping. Uses of the assay in scenarios other than those approved by the FDA should be considered off-label use. ??The accuracy and precision of this test for all other off-label specimen sources has been verified in the Cytopathology Laboratory of the [facility] and has not been cleared or approved by the U.S. Food and Drug Administration. Clinical correlation is advised. ??The assay assesses the E6/E7 DNA target and utilizes human beta globin as an internal control. Cytology and HPV testing are screening assays and should not be used as the sole means of detecting cancer. False-positives and false-negatives can occur. ? CLINICAL HISTORY Date of Last Menstrual Period: ??Not Provided Menstrual History: ??Unknown Contraceptive History: ??BCPs Other Clinical Conditions: ??Screening Pap SPECIMEN SOURCE A: PAP SMEAR (THIN PREP) CE Patient Name: ??NICHELLE VASQUES : ??1980 (Age: 44) Sex: ??F Institution: ??[facility] Date of Collection: ??08/16/2024 Date of Reported: ??08/23/2024 12:37 Results to: Joann Pabon Joann Medina MD CYTOLO GY ORDERABLES SEE NARRATIVE from Last 3 Months Care Teams Zyglo Inspector Relationship Specialty Start Date End Date Dora No MD [address] [place] [address] ALYSIA SCHMIDT PCP - General Internal Medicine 12/22/23 Additional Source Comments The information contained in this document represents components of the legal health record. It is not the complete legal health record.[facility]
--- OUTSIDE RECORDS SUMMARY | 2024-11-15 12:35 | XMS_ITS | Continuity of Care Document ---
Author Organization [facility] [address] [place] [address] Phone [phone] Care Team Providers Care Retail Mortgage Banker Name Role Phone Dora No MD Care Team Information Shingles Roofer Helper [phone] Problems Active Problems Provider Date Papillary thyroid carcinoma Brandi long M.D. Onset: 07/07/2022 Kidney stone Brandi Riley M.D. Ons et: 07/07/2022 Obesity Brandi Riley M.D. Ons et: 07/07/2022 Obstructive sleep apnea syndrome Brandi Fatima M.D. Onset: 07/07/2022 Ventricular premature complex Brandi butcher M.D. 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 ETOH Use Denies alcohol use Tobacco Use Start: Unknown Patient has never smoked Allergies and adverse reactions Active Allergies Criticality Reaction Severity Comments Date Penicillin Unable to assess criticality 07/07/2022 Sulfamethizole Unable to assess criticality 07/07/2022 Ceclor Unable to assess criticality 07/07/2022 Doxycycline Unable to assess criticality 07/07/2022 Omeprazole Unable to assess criticality Hives 07/07/2022 Medications Active Medications SIG Qnty Indications Order ing Provider Date Incassia0.35mg Tablets Take 1 Tablet By Mouth Every Day Unknown Levothyroxine [id number] Tablets Take 1 Tablet By Mouth Every Day Except Take 1/2 Tab On Sundays 90tabs Brandi Riley M.D. Advair [id number]/Act Aerosol Inhale 2 Puffs Twice A Day prn Unknown [id number] Tablets Take 1 Tablet By Mouth Twice A Day Dora No MD Propranolol HCL ER60mg Caps ER 24HR Tkae 1 Capsule By Mouth Daily Bryant Hawkins MD Clonazepam0.5mg Tablets 1 Tablet By Mouth Daily as Needed For Acute Anxiety Dora No MD [id number] Tablets Take 1 Tablet By Mouth Every 8 Hours prn Unknown Albuterol Sulfate WBQ746(90Base) mcg/Act Aerosol Take 2 puff(S) (Inhalation) Every 4 Hours as Needed - Wheezing For 10 Days Unknown Azelaic Acid15% Gel Unknown Vital Signs Date Vital Result Comment 08/01/2024 1:14pm BP Systolic 126 mmHg BP Diastolic 82 mmHg Heart Rate 83 /min Height 65 inches 5'5 Weight 325.25 lb BMI (Body Mass Index) 54.1 kg/m2 Results Test Acquired Date Facility Test Result H/L Range Note Laboratory test finding 08/01/2024 [facility] TSH Rfx on Abnormal to Free T4 3.530 uIU/mL 0.450-4.5 00 Tgab+Thyroglobu mariana, Jami Or LCMS 01/28/2024 [facility] Thyroglobulin Antibody <1.0 IU/mL 0.0-0.9 1 Thyroglobulin b y Jami <0.1 ng/mL Low 1.5-38.5 2 Laboratory test finding 01/28/2024 [facility] TSH Rfx on Abnormal to Free T4 3.190 uIU/mL 0.450-4.5 00 Laboratory test finding 06/16/2023 [facility] TSH With Reflex To FT4 1.02 uIU/mL (0.4-4.2) Laboratory test finding 02/22/2023 [facility] TSH With Reflex To FT4 <pending> Laboratory test finding 02/19/2023 [facility] TSH With Reflex To FT4 0.19 uIU/mL Low (0.4-4.2) Free T4 1.50 ng/dL (0.70-1.8 0) Thyroglobulin,T um or MRKR W/RFLX <1.0 3 Thyroglobulin Reflex Immunoassay <0.1 Low 4 Laboratory test finding 01/15/2023 [facility] TSH With Reflex To FT4 <pending> Thyroglobulin, Tumor Marker W/Reflex <pending> Laboratory test finding 07/07/2022 [facility] TSH With Reflex To FT4 1.62 uIU/mL (0.4-4.2) 1 Thyroglobulin Antibo dy measured by Janel Agapito Methodology It should be noted that the presence of thyroglobulin antibodies may not be pathogenic nor diagnostic, especially at very low levels. The assay music writer has found that four percent of individuals without evidence of thyroid disease or autoimmunity will have positive TgAb levels up to 4 IU/mL. 2 According to the [facility] [employer] of Clinical [employer]ochemistry, the reference interval for Thyroglobulin (TG) should be related to euthyroid patients and not for patients who underwent thyroidectomy. TG reference intervals for these patients depend on the residual mass of the thyroid tissue left after surgery. Establishing a post-operative baseline is recommended. The assay limit of quantitation is 0.1 ng/mL Thyroglobulin measured by Janel Washington Immunometric Assay 3 Reference range: 0.0 to 0.9 Unit: IU/mL (NOTE) Thyroglobulin Antibody measured by Janel Agapito Methodology Test performed by [employer], [address] [facility] [place] [address] 4 Reference range: 1.5 to 38.5 Unit: ng/mL (NOTE) According to the National Academy of Clinical Biochemistry, the reference interval for Thyroglobulin (TG) should be related to euthyroid patients and not for patients who underwent thyroidectomy. TG reference intervals for these patients depend on the residual mass of the thyroid tissue left after surgery. Establishing a post-operative baseline is recommended. The assay limit of quantitation is 0.1 ng/mL Thyroglobulin measured by Janel [employer] Immunometric Assay Test performed by [employer], [facility] [place] [address] Procedures Date Code Description Status 08/01/2024 04688 Collection Of Venous Blood B y Venipuncture Completed 01/28/2024 89636 Collection Of Venous Blood B y Venipuncture Completed 07/07/2022 92231 Collection Of Venous Blood B y Venipuncture Completed Medical Devices Description No Information Available Encounters Type Date Location Provider Dx Diagnosis Office Visit 08/01/2024 1:00p Main Office Brandi Riley M.D. C73 Malignant neoplasm of thyroid gland Assessments Date Code Description Provider 08/01/2024 C73 Malignant neoplasm of thyroi d gland Brandi Riley M.D. Plan of Treatment Future Appointment(s):* 02/06/2025 8:30 am - Brandi Riley M.D. at Main Office 07/07/2022 - Brandi Riley M.D.* C73 Malignant neoplasm of thyroid gland Functional Status Description No Information Available Mental Status Description No Information Available Referrals Description No Information Available
== END 2024-11-15 11:22 | disposition home or self-care (01) ==
PROVIDERS: PCP Family Medicine; Visit Provider Internal Medicine Cardiovascular Disease
DX: I49.3 Ventricular premature depolarization (principal); I10 Essential (primary) hypertension
CPT/HCPCS: 93010; 99214

== ENCOUNTER → 2024-11-15 10:33 | Outpatient (BNVA) | payer OTHER, SELFPAY | PROVIDERS: PCP Family Medicine; Visit Provider Internal Medicine Cardiovascular Disease | DX: I49.3 Ventricular premature depolarization (principal); I10 Essential (primary) hypertension | CPT/HCPCS: 93005 ==

== ENCOUNTER 2025-03-22 14:07 | Outpatient (AMB) | payer OTHER, SELFPAY ==
--- OUTSIDE RECORDS SUMMARY | 2025-03-20 23:59 | XMS_ITS | Continuity of Care Document ---
Author Organization [facility] Address [address] [place] [address]- Support Name Relationship Address Phone CAPRICE, SUZY Personal Relationship Unknown Unavai lable MCCURDY, GILSON [...] Unknown Unavai lable Care Team Providers Care Farmworker Bulbs Name Role Phone Oneal LEE, Dora Brennan Primary Care Physician Encounter [facility] NBR [id number] Date(s): 03/13/25 - 03/20/25 [facility] [address] [place] [address]- Encounter Diagnosis Neck pain on left side(Discharge Diagnosis) - 03/13/25 Middle ear effusion(Discharge Diagnosis) - 03/13/25 Attending Physician: Dylon Trejo NP Encounter Type: Office Visit Allergies, Adverse Reactions, Alerts Substance Criticality Severity Reaction Reaction Severity Status doxycycline vomiting Active Decadron unknown Active Butrans 1 hives Active penicillin Hives Active sulfADIAZINE Hives Active omeprazole hives Active cephalosporins hives Activ e Ultram unknown Active Vicodin nausea,general malaise Active Percocet 5/325 nausea Activ e Ceclor Hives Active 1nausea Immunizations Given and [...] 06/05/17 Recorded Fluvirin (oldterm) 06/03/17 Recorded Medications Breyna 160 mcg-4.5 mcg/inh inhalation aerosol 2 inhalation, Inhalation, 2 times a day, rinse mouth and throat after use, # 10.3 Gm, 11 Refills, Maintenance, 01/18/25 12:17:00 PM EDT, Aerosol, [id number], Partial fill upon patient request if the prescription is for a schedule II opioid drug., 2 inhalation Inhalation 2 times a day,Instr:rinse mouth and throat after use, 165, cm, 01/02/25 11:05:00 EDT, Height, 147.6, kg, 09/30/24 15:26:00 EST, Dry Weight Start Date: 01/18/25 Status: Ordered Quantity: 10.3 Unit: g Repeat number: 12 diclofenac sodium 75 mg oral delayed release tablet 1 tablet = 75 mg, By Mouth, 2 times a day, with food, # 28 tablet, 0 Refills, Maintenance, 03/13/25 10:42:00 AM EDT, EC Tablet, [facility]pharmacy #[id number], Partial fill upon patient request if the prescription is for a schedule II opioid drug., 165, cm, 03/13/25 10:25:00 EDT, Height, 147.9, kg, 03/08/25 15:05:00 EDT, Dry Weight Start Date: 03/13/25 Stop Date: 03/27/25 Status: Ordered Quantity: 28.0 Unit: tablet Repeat number: 1 famotidine 40 mg oral tablet 1 tablet, By Mouth, 2 times a day, # 180 tablet, 1 Refills, Maintenance, 02/11/25 3:23:00 PM EDT, [id number], 165, cm, 01/02/25 11:05:00 EDT, Height, 147.6, kg, 09/30/24 15:26:00 EST, Dry Weight Start Date: 02/11/25 Stop Date: 03/13/25 Status: Ordered Quantity: 180.0 Unit: tablet Repeat number: 1 levalbuterol 45 mcg/inh inhalation aerosol 2 inhalation = 90 mcg, Inhalation, Every 6 hours, PRN as needed for shortness of breath or wheezing, # 1 each, 4 Refills, Maintenance, 01/09/25 4:34:00 PM EDT, Aerosol, [facility]/pharmacy #[id number], Partial fill upon patient request if the prescription is for a schedule II opioid drug., 165, cm, 01/02/25 11:05:00 EDT, Height, 147.6, kg, 09/30/24 15:26:00 EST, Dry Weight Start Date: 01/09/25 Status: Ordered Quantity: 1.0 Unit: each Repeat number: 5 Indications: Other specified chronic obstructive pulmonary disease; levothyroxine 0.15 mg oral tablet 0 Refills, Maintenance, 12/28/23 9:44:00 AM EDT, Partial fill upon patient request if the prescription is for a schedule II opioid drug. Start Date: 12/28/23 Status: Ordered Repeat number: 1 MetFORMIN (Eqv-Glucophage XR) 500 mg oral tablet, extended release 180 each, 0 Refill(s), TAKE 2 BY MOUTH EVERY DAY, 0 Refills, 02/28/25 3:27:00 PM EDT, Partial fill upon patient request if the prescription is for a schedule II opioid drug. Start Date: 02/28/25 Status: Ordered Repeat number: 1 oral cntrol [...] 11:10:00 AM EDT, Route to Pharmacy Electronically, [facility]/pharmacy #[id number], Partial fill upon patient request if the prescription is for a schedule II opioid drug., 165, cm, 12/28/23 9:39:00 EDT, Height, 148.5, kg, 05/01/23 9:46:00 EDT, Dry Weight Start Date: 12/28/23 Stop Date: 06/25/24 Status: Ordered Quantity: 120.0 Unit: tablet Repeat number: 6 Zepbound Pen 2.5 mg/0.5 mL subcutaneous solution 2 mL, 0 Refill(s), INJECT 1 PEN UNDER THE SKIN ONCE A WEEK, 0 Refills, 02/28/25 3:28:00 PM EDT, Partial fill upon patient request if the prescription is for a schedule II opioid drug. Start Date: 02/28/25 Status: Ordered Repeat number: 1 Problem List Condition Confirmation Course Effective Dates [...] Active PVC (premature ventricular contraction) Confirmed Active Diagnosis Diagnosis Type Effective Dates Health Status Cl inical Service Informant Neck pain on left side Discharge Diagnosis 03/13/25 Middle ear effusion Discharge Diagnosis 03/13/25 Social History Social History Type Response Smoking Status Never smoker entered on: 06/07/15 Sex Sex Representation Female (finding) Note * Ada Muñiz: PERFORM Event Display: Patient Education/Instruction Authored Date: [id number] Ambulatory Adult Visit Summary [facility] [place] [address] [place] [address] Name: NICHELLE VASQUES : 1980?? Visit: 03/13/2025 10:21?? Ambulatory Visit Instructions ?? Your Care Team Primary Care Provider Oneal LEE, Dora Brennan? This Visit Provider Dylon Trejo NP Your Diagnosis Neck pain on left side Middle ear effusion Vitals Signs Temperature: 97.5 DegF Height: 165 cm Pulse Rate: 87 bpm Weight: 144.1 kg Oxygen Saturation: 98 % Body Mass Index:??52.93 kg/m2??Critical ?? Body surface area: 2.57 What to do next Scheduled Follow-Up Appointments Thursday 1:00 PM EDT ?? With: Tj LEE, Berenice Guerrero Where: [facility] [address] [place] [address]- Status: Pending Future Orders Lipid Panel - Routine, Once, 02/28/25 15:54:00 EDT, Future Order, [facility], Blood?? Comprehensive Metabolic Panel - Routine, Once, 02/28/25 15:55:00 EDT, Future Order, [facility], Blood?? Medications The [...] provider. What How Much When Why Instructions New Diclofenac (diclofenac sodium 75 mg oral delayed release tablet) 1 tab(s) Oral Twice a day Duration: 14 Days with food ?? Pickup at [facility]/pharmacy #[id number] Unchanged Budesonide-Formoterol (Breyna 160 mcg-4.5 mcg/ inh inhalation aerosol) 2 inhalation Inhalation Twice a day rinse mouth and throat after use ?? Unchanged Famotidine (famotidine 40 mg oral tablet) 1 tab(s) Oral Twice a day Duration: 30 Days Unchanged Levalbuterol (levalbuterol 45 mcg/ inh inhalation aerosol) 2 inhalation Inhalation Every 6 hours as needed for as needed for shortness of breath or wheezing COPD type B Unchanged Levothyroxine (levothyroxine 0.15 mg oral tablet) Unchanged Metformin (MetFORMIN (Eqv-Glucophage XR) 500 mg oral tablet, extended release) 180 each, 0 Refill(s), TAKE 2 BY MOUTH EVERY DAY ?? Unchanged Miscellaneous Rx (oral cntrol pills) Unchanged Oxycodone (oxyCODONE 5 mg oral tablet) 1 tab(s) Oral Every 6 hours as needed for Pain , Severe Duration: 5 Days Unchanged Propranolol (propranolol 60 mg oral tablet) 1 tab(s) Oral Daily at Bedtime Unchanged Sucralfate (sucralfate 1 gm oral tablet) 1 tab(s) Oral 3 times a day before meals and bedtime Duration: 30 Days Unchanged tirzepatide (Zepbound Pen 2.5 mg/ 0.5 mL subcutaneous solution) 2 mL, 0 Refill(s), INJECT 1 PEN UNDER THE SKIN ONCE A WEEK ?? Pharmacy Information [facility]/pharmacy #[id number]: [address], [place] [id number] [phone] ?? What How Much When Comments Stop Taking Ibuprofen (ibuprofen 600 mg oral tablet) 1 tab(s) Oral 3 times a day as needed for Pain , Moderate Duration: 30 Days Medications and Immunizations Administered [...] are strongly encouraged to quit. Please call [employer] Link at [phone] or 1-064-[employer] (3652) or log in to [email or web address] for referrals to smoking cessation programs. ?? The National Suicide Prevention Hotline is available 13/04 if you or someone you know needs to find a reason to keep living. By calling 1-010-942-[employer] (2772) you'll be connected to a skilled, trained counselor at a crisis center in your area. [facility] [employer] Portal You can view and manage your care through the patient portal or by using a health care ángela of your choosing. [employer] is a website that allows you to securely view your medical information including your hospital discharge summary, office visit summaries, medications and follow-up visits. You can also request appointments, renew medications, and request access to your medical information using a health care ángela of your choosing, or just ask a question. You can enroll at [email or web address] or register during your next office visit. [facility], in keeping with [facility] guidance, no longer requires face masks for [...] primary care provider, you may find a [facility] provider by calling [facility] at [phone]. Patient Care team information Care Team Personnel Name: Dora No MD Position: [facility] Physician - Primary Care Member Role: PCP Address: [address] [place] [address] Telecom: Name: Danial LEE, Alton Obrien Position: [facility] BUTTONHOLE MARKER MD Member Role: Lifetime BUTTONHOLE MARKER Physician Name: Naif Rios RN Position: [facility] RN Member Role: Primary Care Nurse Care Team Related Persons Name: ALANNA CASTANON Name: ALANNA CASTANON Name: SUZY VASQUES Name: SUZY VASQUES Insurance Providers Guarantor name: NICHELLE VASQUES [facility] Information #: 1 [facility] Payer Identifier: NA Member Number: [id number] Group Number: [id number] Subscriber Identifier: [id number] Relationship to Subscriber: spouse Coverage Type: Managed Care (Private) Coverage Verification Date: Telecom: NA Address: NA
--- NOTE | 2025-03-22 14:22 | MHC.OFFVIS ---
Vital Signs 03/22/25 14:23 Height 5 ft 6 in Weight 310 lb BMI 50.0 BP 130/80 Blood Pressure Location Lt brachial Position Sitting Pulse 77 Pulse Source Pulse Oximeter Intake Visit Reasons: Follow up with Concerns Allergies acetaminophen (Percocet) Allergy (Unknown, Verified 01/23/20 00:00) omeprazole Allergy (Unknown, Verified 01/23/20 00:00) oxycodone (Percocet) Allergy (Unknown, Verified 01/23/20 00:00) penicillin V Allergy (Unknown, Verified 01/23/20 00:00) Sulfa (Sulfonamide Antibiotics) Allergy (Unknown, Verified 01/23/20 00:00) Cecon Allergy (Unknown, Uncoded 01/23/20 00:00) Doxycycline (Rosacea) Allergy (Unknown, Uncoded 01/23/20 00:00) Vicodin Allergy (Unknown, Uncoded 01/23/20 00:00) Medication List - Last Reconciled 03/22/25 by Bernard Orellana NP famotidine 40 mg PO BID levothyroxine 150 mcg PO DAILY metformin 500 mg PO BID norethindrone (contraceptive) (Incassia) 0.35 mg PO DAILY propranolol ER 60 mg PO DAILY tirzepatide (weight loss) (Zepbound) 5 mg subcut QWEEK HPI Comments Details: This is a 45-year-old female patient coming in for complaints of high blood pressures and recent abnormal labs with her endocrinology. Patient with a history of hypertension, PVCs, and obesity and was recently seen by Dr. Hawkins in the office. Patient states that she recently saw her endocrinology who was following her for history of thyroid cancer. Patient states that she was there to discuss weight loss management and had done some recent labs including A1c and lipid profile. Patient was recently diagnosed with diabetes with an A1c of 9%. Patient was started on metformin and Zepbound and patient states that her most recent A1c is now down to 7%. Patient also had some elevated LDL for which she would like to discuss medical therapy. Patient is otherwise denying any cardiac symptoms including exertional chest pain, shortness of breath, palpitations, dizziness, orthopnea, PND, leg edema, presyncope, or syncope. Patient states that since being on Zepbound she has lost about 16 lb now. Patient is otherwise compliant with the propranolol that she was taking for the PVCs. [facility] Medical History SOB (shortness of breath) on exertion Obstructive sleep apnea Obesity HTN (hypertension) PVCs (premature ventricular contractions) Surgical History Hx of lithotripsy Hx of thyroidectomy Family History Father No problems noted. Mother Afib Review of Systems Const Denies weakness ENT Denies dizziness Card Denies chest pain, Denies chest pain with activity, Denies syncope, Denies rapid heart rate, Denies pedal edema, Denies edema, Denies leg edema, Denies lightheadedness, Denies palpitations, Denies dyspnea, Denies dyspnea on exertion and Denies orthopnea Resp Denies cough, Denies dyspnea and Denies dyspnea on exertion GI Denies hematochezia and Denies change in stool character Musc Denies abnormal gait, Denies muscle cramps, Denies muscle weakness, Denies numbness, Denies radiating pain into limb and Denies tingling Neuro Denies abnormal gait, Denies dizziness, Denies syncope, Denies numbness, Denies tingling and Denies weakness Endo Denies palpitations Physical Exam Vital Signs: Last Vital Signs Pulse 77 03/22/25 14:23 BP 130/80 03/22/25 14:23 BMI result Body Mass Index 50.0 Const General: cooperative, healthy appearing, comfortable and no acute distress Orientation/consciousness: patient oriented x3 HEENT Head: Yes normal to inspection Neck Neck: Yes normal visual inspection, Yes trachea midline and Yes supple Chest Chest palpation & inspection: normal inspection of the chest Resp Effort & Inspection: normal respiratory effort Auscultation: clear to auscultation bilaterally, no crackles, no rales, no rhonchi and no wheezes Cardio Jugular venous distension: no JVD Palpation: normal PMI Rate: regular rate Rhythm: regular rhythm Heart sounds: S1 normal heart sound present, S2 normal heart sound present, no click, no gallops, no murmurs and no rubs Peripheral pulses: Peripheral pulses 2+ throughout GI Inspection: Yes normal to inspection Palpation (GI): Soft to palpation Auscultation: normal bowel sounds Skin General skin exam: no rashes or lesions noted Neuro General: patient oriented x3 Extrem General: Yes normal to inspection, No no pedal edema and No calf tenderness Psych Appearance: grossly normal Mental Status: mental status grossly normal Speech and movement: Normal speech and movement present Assessment & Plan Assessment & Plan (1) PVCs (premature ventricular contractions): Code(s): I49.3 - Ventricular premature depolarization Category: Medical Plan: History of symptomatic PVCs for which patient is on propranolol. Continue the same. (2) HTN (hypertension): Code(s): I10 - Essential (primary) hypertension Category: Medical Plan: Blood pressure today is within normal limits. Today at the office, the [place] checked her blood pressure with her home wrist machine which was completely different with a systolic blood pressure in the 190s. We will send a script for an blood pressure monitor kit. Advised monitoring blood pressures at home and maintaining a log. Ideally, patient's blood pressure goal should be less than 130/80. (3) Hyperlipidemia: Code(s): E78.5 - Hyperlipidemia, unspecified Category: Medical Plan: Patient had some recent labs at [facility] with her bank operations officer where patient's LDL was elevated at 132. Patient states that she has changed her diet significantly and is trying to stay active. We will start patient on a low-dose statin therapy and titrate as needed. Ideally, LDL goal less than 100. We will repeat a lipid profile and liver function in 3 months. We will follow up with the patient via call once labs are completed. (4) Diabetes: Code(s): E11.9 - Type 2 diabetes mellitus without complications Category: Medical Plan: Recent new diagnosis of diabetes with an A1c recently at 7%. Continue aggressive diabetes management. (5) Obesity: Code(s): E66.9 - Obesity, unspecified Category: Medical Plan: Continue weight loss management program. Advised heart healthy diet, regular exercise, losing weight, med compliance, and management of vascular risk factors. Patient will keep her follow-up visit for now and we will bring her in sooner if needed. In the interim, patient will call the office with any concerns or change in symptoms. This note was generated using voice recognition software. While every effort has been made to ensure accuracy and proper oyster picker, there may be occasional errors that could affect the content or meaning of the described symptoms. Orders: Orders Lipid Panel 3 Months E78.5 - Hyperlipidemia, unspecified Liver Panel 3 Months E78.5 - Hyperlipidemia, unspecified Medications: New atorvastatin (Lipitor) 10 mg PO DAILY 90 tabs 1RF blood pressure kit-extra large As directed 1 ea 0RF Coding Level of Care Code Est Pt Level 4 (07429) Complex EM visit Add On G2211 Diagnoses PVCs (premature ventricular contractions) I49.3 HTN (hypertension) I10 Hyperlipidemia E78.5 Diabetes E11.9 Obesity E66.9 Time Spent (min) 32 Comment Time spent in reviewing the chart, test results, assessment, counseling and documentation.
[2025-03-22 14:23] VITALS: BP 130/80; PULSE 77; BMI 50.0
--- OUTSIDE RECORDS SUMMARY | 2025-03-22 14:44 | XMS_ITS | Data Portability ---
Author Organization [place] - [facility], [facility] Address [address] [place] [phone] Care Team Providers Care Nanny/Household Manager Name Role Phone MIKAEL ANDERSON Primary Care Provider [phone] Assessment Encounter Date Assessment Date Assessment LastModified by Organization Details LastModified Time 10/20/2020 10/20/2020 Time On Scene with Patient: 00:53:54 [id number] Not available 10/20/2020 14:21:30 12/12/2021 12/12/2021 Overview/History : 41 YO F known to and new to provider She is being seen today for cold like sx's since last weekend (4-5 days of sx's) Nasal congestion, swollen nodes, sore throat (worst in the am), very mild dry cough mostly in am. Mild frontal jeter relieved w. Tylenol. She does admit that she has been taking old clarithromycin tabs that she had left over for the last couple of days. She denies any fever, chills, severe jeter, vision changes, loss of taste or smell, SOB, prod cough, chest congestion, cp, abd pain, N/V/D, diff using the bathroomm. No other assoc sx's. Exam: Vitals: VSS and afebrile Constitutional: 41 yo Well developed, well nourished, pleasant patient in no apparent distress. She appears comfortable on her couch. She is not toxic appearing. Eyes: PERRL at 4mm, EOM's intact, No swelling, no discharge, sclera / conjunctiva clear ENT: BL inflamed turbinates w/ mild clear nasal d/c, mild cobblestoning of oropharynx, no sinus tenderness, Uvula midline, TMs/ Canals clear without evidence of infection, no erythema/ exudate noted in oropharynx, moist mucous membranes CV: Normal HR, reg rhythm, no rubs/ murmurs/ gallops heard, 2+ radial pulses bilaterally Pulm: breath sounds clear and equal bilaterally, no wheeze/ rhonchi or rales on auscultation. Speaks in full sentences, no increased work of breathing. MS: Self ambulatory patient, moves all limbs without deficit, no evidence of trauma Neuro: No focal deficits, A&O x4, CN s II-XII grossly normal, gait not ataxic Skin: No rash. No cyanosis or pallor Psych: Calm, cooperative, non-manic. Pleasant. DDx considered, but not limited to: Viral syndrome - ML diagnosis base don sx's and duration as well as exam findings Allegic Rhinitis - also very possible w/ cobblesting of mucosa, fam w/ same sx's and unsure if viral or allergic at this point, has not had great relief of claritin at this point so presuming mild viral syndrome at this point Sinusitis - possible w/ congestion but no sinus tenderness. Possible early bacterial but unlikely Flu - no fever, body aches, cough Pna - no prod cough, O2 sat stable, CTAB lungs very unlikely and no need for XR at this point Work up/Results: N/a Plan/Discussion: Viral Syndrome: -ML diagnosis -Possible allergies but other fam members w/ sim sx's and not much relief w/ claritin thus far -Sx's staying stable and not acutely worsening -for sx relief trial mucinex for any cough, tylenol/ibuprofen for nay jeter, flonase for congestion and trial zyrtec a diff antihistamine -f/u if sx's worsen -f/u emergently w/ fever >102 F, resp distress, cp, jeter, numbness/tingling , weakness -d/t her sx's and possibility of this being bacterial sinusitis based on congestion and frontal jeter will send script for abx that she can mixing picker tender starting thursday if sx's persist or worsen, she is going on vacation Thursday so I am doing the patient a favor by sending a script so she does not need to worry about receiving f/u . she does have multiple abx allergies including pcn, cephalosporins, and doxycylcine so will use small course of clindamycin as this can help tx sinusitis per uptodate. educated that diarrhea is known s/e and educated to take w/ food and probiotic to avoid this. also told to only mixing picker tender abx if abs needed and if sx's cont or worsening. verbalizes understanding Pt is on agreement and verbalizes understanding with the above plans at this time. Pt has no other questions or concerns at this time. All questiosn are answered to the best of my ability. Pt thanks us for our visit today. In order to obtain further information and compare any laboratory results/values, I have accessed old patient records and [facility]. This information was pertinent in my medical decision making today. [email or web address] Not available 12/12/2021 12:13:48 Plan of Treatment Reminders Order Date Submit Date Provider Last Modified By Organization Details Last Modified Time Details Appointments None recorded. Lab culture, urine 2020 021 RIKA [facility] (Centralized Electronic Ordering - All Locations), Patient Can Go To The Location Of Their Choice, [facility] 10:48:53 urinalysis , dipstick 2020 021 [facility] [place], [address] [place] [address], [id number], 14:00:53 Referral None recorded. Procedures None recorded. Surgeries None recorded. Imaging None recorded. Medication Orders clindamyci n HCl 300 mg capsule 2021 022 [facility]/Pharmacy #[id number], [address] [place], [address], 2 11:39:07 Miralax 17 gram oral powder packet 2020 021 [facility]/Pharmacy #[id number], [address] [place], [address], 14:01:30 Colace 100 mg capsule 2020 021 [facility]/Pharmacy #[id number], [address] [facility], [address], 14:01:32 Motrin IB 200 mg tablet 2020 021 [facility], [address] [facility], [place], [address], 14:23:26 Patient TargetsNo targets recorded. Patient Instructions Encounter Date Encounter Id Patient Instructions Last Modified By Organization Details Last Modified Time 10/20/2020 [id number] abdominal pain: care instructions Not available 10/20/2020 13:57:09 constipation: ca re instructions Not available 10/20/2020 13:57:11 You were seen today for abdominal discomfort that started Thursday after your D&C surgery on Thursday. Start taking Motrin today 600 mg every 8 hours for post-operative inflammation. This is most likely causing your lower abdominal discomfort. Your exam was wnl for suspicion of Appendicitis. Your bowels are active as you are passing flatus and loose stools. Stop taking ex-lax and OTC laxatives you have been taking. Switch to the Miralax packets daily ordered for you today. Take this once a day as needed and use Colace once a day as needed for constipation. TITRATE THE MIRALAX TO 1/2 PACKET OR JUST DON'T USE IF STOOLS REMAIN LOOSE. DAILY STOOL SOFTENERS 1-2 EACH DAY WILL HELP REGULATE YOUR CHRONIC CONSTIPATION. Use Preparation H OTC remedies for flare up with hemorrhoids. Your urine dipstick was normal, we will still send off the urine culture and call you with results. You mentioned a thin stool prior to surgery that may indicate changes in your bowel. Please keep your appointment with your GI doctor 11/19/2020. If you should develop INCREASED ABDOMINAL PAIN, FEVER, NAUSEA/VOMITING, UNCONTROLLED DIARRHEA OR INABILITY TO STOOL/STOP PASSING FLATUS, REPORT TO ED. PLEASE MAINTAIN YOUR SICK DIET. Thank you for your visit with [facility] today. We cannot always find the exact cause of your symptoms during your initial visit. Please follow up with your primary care provider or specialist as needed to be rechecked or seek medical attention if your symptoms do not go away or get worse. If you develop any new or worsening symptoms and need after hours care, please go to nearest ER and/or call 911. If you have additional concerns or develop a change in your condition between 8am-10pm, please call [facility] at [phone] to help navigate your care. Not available 10/20/2020 14:11:35 Reason for Referral None Reported. Results Created Date Observation Date Name Description Value Unit Range Abnormal Flag Note LastModifiedBy Organization Detail LastModifiedTime 10/20/19 21 10/20/2020 urina lysis , dipst ick Appearance cloudy Not Available [facility] [address], [place], [address], 10/20/2020 13:59:34 10/20/19 21 10/20/2020 urina lysis , dipst ick Color yellow Not Available Spr - [address] [place], [address], 10/20/2020 13:59:34 10/20/19 21 10/20/2020 urina lysis , dipst ick Glucose negati ve Not Available Spr - Home [address], [place], [address], 10/20/2020 13:59:34 10/20/19 21 10/20/2020 urina lysis , dipst ick Bilirubin negati ve Not Available Spr - Home [address], [place], [address], 10/20/2020 13:59:34 10/20/19 21 10/20/2020 urina lysis , dipst ick Ketones NEG Not Available Spr - Home [address], [place], [address], 10/20/2020 13:59:34 10/20/19 21 10/20/2020 urina lysis , dipst ick Sp. Dexter 1.025 Not Available Spr - [address] [place], [address], 10/20/2020 13:59:34 10/20/19 21 10/20/2020 urina lysis , dipst ick Blood + Not Available Spr - Home [address] [place], [address], 10/20/2020 13:59:34 10/20/19 21 10/20/2020 urina lysis , dipst ick pH 5.0 Not Available Spr - Home [address] [place], [address], 10/20/2020 13:59:34 10/20/19 21 10/20/2020 urina lysis , dipst ick Protein positi ve Not Available Spr - Home [address] [place], [address], 10/20/2020 13:59:34 10/20/19 21 10/20/2020 urina lysis , dipst ick Urobilirubin negati ve Not Available Spr - Home [address] [place], [address], 10/20/2020 13:59:34 10/20/19 21 10/20/2020 urina lysis , dipst ick Nitrites NEG Not Available Spr - [facility] [address] [place], [address], 10/20/2020 13:59:34 10/20/19 21 10/20/2020 urina lysis , dipst ick Leukocytes NEG Not Available [facility] [address] [place], [address], 10/20/2020 13:59:34 10/20/1910/24/2020 cultu re, urine specimen description URINE Not Available [facility] (Centralized [facility] Ordering - All Locations) Patient Can Go To The Location Of Their Choice, [id number] 10/25/2020 10:48:53 10/20/19 21 10/24/2020 cultu re, urine special requests NONE Not Available [facility] (Centralized Electronic Ordering - All Locations) Patient Can Go To The Location Of Their Choice, [id number] 10/25/2020 10:48:53 10/20/1910/25/2020 cultu re, urine culture Mixed bacter ial hakeem, indica tive of urogen ital contam inatio n. Not Available [facility] (Centralized Electronic Ordering - All Locations) Patient Can Go To The Location Of Their Choice, [id number] 10/25/2020 10:48:53 10/20/19 21 10/25/2020 cultu re, urine report status FINAL 2020 Not Available [facility] (Centralized Electronic Ordering - All Locations) Patient Can Go To The Location Of Their Choice, [id number] 10/25/2020 10:48:53 Result Notes None recorded. Procedures Surgical History Date Name Laterality Status Provider Name and Address Organization Details Recorded Time procedure on spine completed Negin Cha NP [address] [place], [address], [place] [facility] 10/20/2020 13:33:59 Cholecystectomy completed Negin Cha NP [address] [place], [address], [place] [facility] 10/20/2020 13:34:08 section completed Negin Cha NP [address] [place], [address], [place] [facility] 10/20/2020 13:34:17 thyroidectomy completed Negin Cha NP [address] [place] [address] [place], [address], [place] [facility] 10/20/2020 13:34:27 lithotripsy completed Negin Cha NP [address] [place], [address], [place] [facility] 10/20/2020 13:34:46 Dilation and curettage completed Negin Cha NP [address] [place], [address], [place] [facility] 10/20/2020 13:34:55 Imaging Results None recorded. Procedure Notes None recorded. Medical Equipment None Reported. Allergies Allergen ID Allergen Name Allergen Category Reaction Reaction Severity Criticality Documentation Date Start Date Code Code System Note Provider Name and Address Organization Details Recorded Time [id number] Zantac medicatio n Not available Not available Not available 10/20/2020 99894 3 RxNorm Negin Cha NP [address] [place], [address], [place] [facility] 13:00:00 547372 Ultram medicatio n Not available Not available Not available 10/20/2020 86218 6 RxNorm Negin Shirley Semaj, CAT SCAN TECH [address], [facility], [address], [place] [facility] 1 13:00:06 475806 Decadron medicatio n Not available Not available Not available 10/20/2020 48450 2 RxNorm Negin Fern Cha, CAT SCAN TECH [address], [place], [address], [place] [facility] 1 13:00:19 723594 acetamino phen / hydrocodo ne medicatio n Not available Not available Not available 10/20/2020 83395 2 RxNorm Negin Fern Cha, CAT SCAN TECH [address], [place], [address], [place] [facility] 1 13:00:27 573216 acetamino phen / oxycodone medicatio n Not available Not available Not available 10/20/2020 71364 3 RxNorm Negin Shirley Semaj, CAT SCAN TECH [address], [place], [address], [place] [facility] 1 13:00:44 825639 BuTrans medicatio n Not available Not available Not available 10/20/2020 65109 1 RxNorm Negin Fern Cha, CAT SCAN TECH [address], [place], [address], [place] [facility] 1 13:01:30 141710 Ceclor medicatio n Not available Not available Not available 10/20/2020 34439 5 RxNorm Negin Fern Cha, CAT SCAN TECH [address], [place], [address], [place] [facility] 1 13:28:41 975154 Product containin g penicilli n (product) medicatio n Not available Not available Not available 10/20/2020 99711 8001 SNOMED Negin Cha, CAT SCAN TECH [address], [place], [address], [place] [facility] 13:28:48 [id number] Substance with sulfonami de structure and antibacte rial mechanism of action (substanc e) medicatio n Not available Not available Not available 10/20/2020 74454 8003 SNOMED Negin Cha, JOVI [address], [place], [address], [place] [facility] 13:28:56 607382 omeprazol e medicatio n Not available Not available Not available 10/20/2020 7646 RxNorm Negin Cha, JOVI [address], [place], [address], [place] [facility] 13:29:23 Medications Name Sig Start Date Stop Date Status Note LastModified by Organization Details LastModified Time Miralax 17 gram oral powder packet Take 1 packet every day by oral route as directed for 30 days. 2020 active Not Available Not Available Not Avai lable Colace 100 mg capsule Take 1 capsule every day by oral route as directed for 30 days. 2020 active Not Available Not Available Not Avai lable acetaminophe n 325 mg tablet TAKE 2 TABLETS BY MOUTH EVERY 4 HOURS NEEDED FOR PAIN active Not Available Not Available No t Available erythromycin 500 mg tablet active Not Available Not Available Not Available clindamycin HCl 300 mg capsule TAKE 1 CAPSULE EVERY 6 HOURS BY ORAL ROUTE DIRECTED FOR 5 DAYS. active Not Available Not Available Not Available azithromycin 250 mg tablet TAKE 2 TABLETS BY MOUTH TODAY, THEN TAKE 1 TABLET DAILY FOR 4 DAYS active Not Available Not Available No t Available ibuprofen 800 mg tablet TAKE 1 TABLET BY MOUTH EVERY 8 HOURS active Not Available Not Available No t Available benzonatate 200 mg capsule TAKE 1 CAPSULE BY MOUTH 3 TIMES A DAY NEEDED FOR COUGH active Not Available Not Available No t Available clarithromyc in 500 mg tablet active Not Available Not Available Not Available sucralfate 100 mg/mL oral suspension TAKE 10 ML (2 TEASPOONS) BY MOUTH 3 TIMES A DAY BEFORE MEALS & AT BEDTIME active Not Available Not Available No t Available meloxicam 15 mg tablet TAKE 1 TABLET BY MOUTH EVERY DAY active Not Available Not Available No t Available famotidine 40 mg tablet TAKE 1 TABLET BY MOUTH TWICE A DAY active Not Available Not Available No t Available prednisone 20 mg tablet TAKE 3 TABLET (ORAL) 1 TIME PER DAY FOR 7 DAYS active Not Available Not Available No t Available clonazepam 0.5 mg tablet TAKE 1 TABLET BY MOUTH TWICE A DAY NEEDED FOR 3 MONTHS active Not Available Not Available No t Available propranolol ER 60 mg capsule,24 hr,extended release TAKE 1 CAPSULE BY MOUTH EVERY DAY active Not Available Not Available No t Available erythromycin 500 mg tablet,delay ed release TAKE ONE TABLET BY MOUTH WITH FOOD TWICE A DAY. active Not Available Not Available No t Available Motrin IB 200 mg tablet Take 3 tablets every 8 hours by oral route with meals for 7 days. 2020 active Not Available Not Available Not Avai lable Thyrogen 1.1 mg (0.9 mg/mL final concentratio n) intramuscula r solution active Not Available Not Available N ot Available ciprofloxaci n 250 mg tablet TAKE 1 TABLET BY MOUTH EVERY 12 HOURS FOR 10 DAYS active Not Available Not Available Not Available erythromycin 5 mg/gram (0.5 %) eye ointment APPLY 1 APPLICATION 4 TIMES PER DAY FOR 7 DAYS 1/2 TO 1 INCH TO LOWER EYELID OF AFFECTED EYE(S) active Not Available Not Available No t Available levothyroxin e 150 mcg tablet TAKE 1 TABLET BY MOUTH EVERY DAY active Not Available Not Available No t Available norethindron e acetate 5 mg tablet TAKE 1 TABLET BY MOUTH 3 TIMES A DAY active Not Available Not Available Not Available propranolol ER 120 mg capsule,24 hr,extended release TAKE 1 CAPSULE BY MOUTH EVERY DAY active Not Available Not Available No t Available fluticasone 100 mcg-salmeter ol 50 mcg/dose blistr powdr for inhalation Inhale 1 puff twice a day by inhalation route. active Not Available Not Available No t Available levofloxacin 500 mg tablet TAKE 1 TABLET BY MOUTH EVERY 24 HOURS FOR 7 DAYS active Not Available Not Available N ot Available methylpredni solone 4 mg tablets in a dose pack TAKE 6 TABLETS ON DAY 1 DIRECTED ON PACKAGE AND DECREASE BY 1 TAB EACH DAY FOR A TOTAL OF 6 DAYS active Not Available Not Available No t Available albuterol sulfate HFA 90 mcg/actuatio n aerosol inhaler TAKE 2 PUFF(S) (INHALATION ) EVERY 4 HOURS NEEDED - WHEEZING FOR 10 DAYS active Not Available Not Available Not Available hydromorphon e 4 mg tablet PLEASE SEE ATTACHED FOR DETAILED DIRECTIONS active Not Available Not Available N ot Available fluticasone propionate 50 mcg/actuatio n nasal spray,suspen coleman USE 1 SPRAY IN EACH NOSTRIL TWICE A DAY NEEDED active Not Available Not Available No t Available metronidazol e 0.75 % topical gel APPLY TO FACE TWICE DAILY FOR ROSACEA. active Not Available Not Available No t Available tobramycin 0.3 %-dexamethas one 0.1 % eye drops,suspen coleman INSTILL 1 DROP IN THE LEFT EYE 3 TIMES A DAY active Not Available Not Available Not Available cyclobenzapr ine 5 mg tablet active Not Available Not Available Not Available azelaic acid 15 % topical gel APPLY TO FACE ONCE DAILY FOR ONE WEEK, THEN APPLY TO FACE TWICE DAILY FOR MAINTENANCE . active Not Available Not Available No t Available Nortrel (28) 0.5 mg/0.75 mg/1 mg-35 mcg tablet TAKE 1 TABLET BY MOUTH EVERY DAY active Not Available Not Available No t Available levalbuterol HFA 45 mcg/actuatio n aerosol inhaler active Not Available Not Available Not Available Kelnor (28) 1 mg-35 mcg tablet active Not Available Not Available N ot Available chlorhexidin e gluconate 0.12 % mouthwash RINSE WITH 1/2 OUNCE TWICE A DAY FOR 5 DAYS active Not Available Not Available N ot Available levothyroxin e active Not Available Not Available Not Available famotidine active Not Available Not Av ailable Not Available clonazepam active Not Available Not Av ailable Not Available Advair HFA 115 mcg-21 mcg/actuatio n aerosol inhaler active Not Available Not Available Not Available Kaylee Freed [facility] spacer USE DIRECTED WITH METER DOSE INHALER active Not Available Not Available No t Available Alyacen (28) 1 mg-35 mcg tablet TAKE 2 TABLETS PER DAY ORALLY TILL BLEEDING STOPS THEN 1 TABLET DAILY active Not Available Not Available No t Available Incassia 0.35 mg tablet TAKE 1 TABLET BY MOUTH EVERY DAY active Not Available Not Available No t Available Vitals Date Recorded Heart rate Respiratory rate Body temperature Oxygen saturation Oxygen saturation in Arterial blood by Pulse oximetry Systolic blood pressure Diastolic blood pressure Provider Name and Address Organization Details Last Updated DateTime 1 79 /min 20 /min 98.3 [degF] 98 % 98 % 140 mm[Hg] 80 mm[Hg] Not Available [facility] 13:36:58 Date Recorded Respiratory rate Oxygen saturation Oxygen saturation in Arterial blood by Pulse oximetry Heart rate Body temperature Systolic blood pressure Diastolic blood pressure Provider Name and Address Organization Details Last Updated DateTime 2 20 /min 98 % 98 % 94 /min 98.8 [degF] 152 mm[Hg] 76 mm[Hg] Not Available [facility] 2 11:23:07 Social History Question Answer Notes LastModified by Organizat ion Details LastModified Time Tobacco Smoking Status Never Smoker Negin Cha NP [address], [place], [address], [place] [facility] 10/20/2020 13:33:05 Do You Have An Advance Directive? No Information not available 10/20/2020 What Is Your Code Status? Full Code Information not available 10/20/2020 Within The Past 12 Months, Has It Happened That The Food You Bought Just Didn't Last And You Didn't Have Money To Get More. No Information not available 10/20/2020 Within The Past 12 Months, Have You Worried That Your Food Would Run Out Before You Got Money To Buy More. No Information not available 10/20/2020 Fall Risk: Do You Feel Unsteady When Standing Or Walking? No Information not available 10/20/2020 We Know That How And When People Interact With Friends And Family Can Be Very Different From Person To Person. How Often Do You Have The Opportunity To See Or Talk To People That You Care About And Feel Close To? (Ex: Talking To Friends On The Phone Or Visiting Friends Or Family Or Going To Denominational Or Club Meetings) 1 Or 2 Times Per Week Information not available 10/20/2020 Excessive Alcohol Or Drug Use No Information not available 10/20/2020 We Know From Many Of Our Patients That Covering All Of Their Costs Can Be Difficult At Times. This Can Cause Stress And Impact Health. In The Past Year, Have You Been Unable To Get Any Of The Following When It Was Really Needed? No Information not available 10/20/2020 What Is Your Housing Situation Today? I Have Housing Information not available 10/20/2020 Would You Like Help Connecting To Resources? None Information not available 10/20/2020 Sex: Unknown Functional Status None recorded. Mental Status None recorded. Family History Relationship Description Onset Age of this Age Resolved Age Notes LastModified by Organization Details LastModified Time Mother Hypertensive disorder Not available 2020 13:32:01 Mother Atrial fibrillation Not available 13:32:13 Mother Diabetes mellitus Not available 2020 13:32:30 Mother Splenomegaly Not availa ble 10/20/2020 13:32:43 Medical History Condition Response Diabetes N Coronary Artery Disease High Cholesterol Y Pulmonary Embolism N Cancer Y Hypertension Y Stroke N Asthma N COPD N Depression N Kidney Disease N Gynecological HistoryNo gynecological history recorded. Obstetrics History GPAL:G 0 P 0 0 0 0 Past Encounters Encounter ID Performer Location Encounter Start Date Encounter Closed Date Diagnosis/Indication Diagnosis SNOMED-CT Code Diagnosis ICD10 Code Diagnosis Note [id number] Negin Cha NP [facility] - HOME [address] [place] [address] 10/20/2020 13:27:43 10/23/2020 08:02:51 Abdominal pain 92745614 R10.9 Overview/H istory: Patient is a 40 year old obese female who is alert and appropriat e. Patient underwent D&C procedure this past Thursday and noted constipati on postoperat ively. Despite taking several OTC remedies for constipati on and having loose stools since Thursday, patient continues to feel constipate d. There were no complicati ons postoperat ively and patient has not taken any inflammato ry or pain medication s. Exam: Ptient afebrile, HRR79, S1, S2. LSCTA bilaterall y, no work of breathing. Trachea midline, no JVD distention . Moist mucous membranes, no lymphadeno azeem. Abdomen SNT to palpation, hypoactive bowel sounds. No rebound tenderness , no organomega lly. No CVA tenderness , no suprapubic tenderness . DDx considered , but not limited to:Post operative discomfort D&C likely, inflammati onUTI not likely - dipstick negative findingsCo nstipation likely, chronic at baselinein tussuscept ion considered , patient passing loose stools, non toxic examhemorr hoids likely given +history Work up/Results :ExamUrine dipstick benignUrin e culture pending Plan/Discu ssion:1. Follow up with urine culture results, report to patient, attach PCP2. Motrin for lower abdominal discomfort 3. DC OTC laxatives, regulate chronic constipati on with bowel regime, daily colace 1-2 capsules, Miralax as needed4. Hydrate with electrolyt e solution and adhere to sick diet as discussed5 . Follow up with GI provider for November appointmen t Discussed s/s to report to pcp vs. acute s/s to report to ED if symptoms become acute.Smiley ent is able to reiterate all discussed. No questions at this time. Proper Personal Protective Equipment (PPE), including gloves, eye protection , N95 mask, gown, and shoe covers were donned and doffed approprmercy arias and all equipment cleaned using approved technique with germicidal disposable wipes prior to and after care of this patient according to [facility] infection prevention protocols. In order to obtain further informatio n and compare any laboratory results/va lues, I have accessed old patient records. This informatio n was pertinent in my medical decision making today. Constipation 53481520 K5 9.00 [id number] LUMA Montgomery [facility] [address] [place] [id number] 12/12/2021 11:11:18 12/12/2021 12:25:31 Acute sinusitis 26238054 J01.90 Viral syndrome 154890080 B34.9 Health Concerns Section Related Observation LastModified by Organization Detai ls LastModified Time None Recorded Concern Status LastModified by Organization Details LastModified Time None Recorded Advance Directives Directive N: Payers Insurance Date Sequence Insurance Name Policy Number Policy Munoz Covered Member ID Munoz Member ID Guarantor Name 10/26/2021 1 *SELF PAY* Lindy Simental [id number] Lindy Simental 10/26/2021 1 JAYCE [id number] Zeb Simental [id number] Lindy Simental 12/12/2021 1 [employer] [id number] Zeb Simental [id number] Lindy Simental 12/12/2021 1 [employer] [id number] Lindy Simental [id number] 2 Lindy Simental Notes Date Note Type Note Provider Name and Address Organization Details Recorded Time 1 text/html Patient is a 40 year old alert female who is new to and and new to this provider. Patient complains of abdominal pain that migrates, but seems to be focused in the lower right quadrant this past Thursday. She did have a D&C procedure this past Thursday and started taking ex-lax to move her bowels as they felt slow. Patient has been taking OTC laxatives and has liquid stools x two days but the cramping is not going away. She also tried Mag Citrate as her PA brother advised and drank a 1/2 bottle last night with liquid stool results. Denies fever, nausea or vomiting. There are no alleviating factors and no aggravating factors. History significant for thyroid Ca, PVC's, hyperlipidemia, HTN, internal hemmorhoids and anal fissure. Negin Cha, JOVI [address], [place], [phone], [place] - [facility] 10/20/2020 14:45:49 2 text/html 41 YO F known to and new to providerShe is being seen today for cold like sx's since last weekend (4-5 days of sx's)Nasal congestion, swollen nodes, sore throat (worst in the am), very mild dry cough mostly in am. Mild frontal jeter relieved w. Tylenol.She does admit that she has been taking old clarithromycin tabs that she had left over for the last couple of days.She denies any fever, chills, severe jeter, vision changes, loss of taste or smell, SOB, prod cough, chest congestion, cp, abd pain, N/V/D, diff using the bathroomm. No other assoc sx's. LUMA Barragan [address], [place], [phone], [place] - [facility] 12/12/2021 12:13:59 OBGyn Episode No OBEpisode recorded.
== END 2025-03-22 14:50 | disposition home or self-care (01) ==
LOC: HO.HCS 14:08
PROVIDERS: PCP Family Medicine
DX: I49.3 Ventricular premature depolarization (principal); I10 Essential (primary) hypertension; E78.5 Hyperlipidemia, unspecified; E11.9 Type 2 diabetes mellitus without complications; E66.9 Obesity, unspecified
CPT/HCPCS: 99214